=== PATIENT | female | born 1985 | race African-American/Black ===

== ENCOUNTER 2023-10-06 15:58 | Emergency (ER) | payer SELFPAY ==
[~2023-10-06] VITALS: Ht 157.5 cm; Wt 68.0 kg
[2023-10-06 16:18] VITALS: BP 115/50; PULSE 73; RESP 16; TEMP 97.5
[2023-10-06] MEDS ORDERED: SERT100T MT (16:30)
== END 2023-10-06 17:43 | disposition home or self-care (01) ==
LOC: ER 15:58
DX: J45.909 Unspecified asthma, uncomplicated (principal); Z76.0 Encounter for issue of repeat prescription
CPT/HCPCS: 99281